=== PATIENT | female | born 1980 | race Hispanic/Latino ===

== ENCOUNTER → 2021-10-23 | Outpatient (CLI) | payer OTHER | END | disposition home or self-care (01) | LOC: SHCH 13:08 | PROVIDERS: ATTEND Student in an Organized Health Care Education/Training Program | DX: R55 Syncope and collapse (principal); R00.2 Palpitations; E78.5 Hyperlipidemia, unspecified | CPT/HCPCS: 93306 ==

== ENCOUNTER 2022-04-27 12:40 | Emergency (ER) | payer OTHER ==
[~2022-04-27] VITALS: Ht 157.5 cm; Wt 63.5 kg
[~2022-04-27 12:40] MED LIST: ACYC-138 PO; IBUP-2070 PO; TRAM100T40 PO
[2022-04-27 12:45] VITALS: BP 130/80
[2022-04-27] MEDS ORDERED: LORAZEPAM 1 MG TABLET PO ONE (13:00)
[2022-04-27] MEDS ORDERED: PREDNISONE 20 MG TABLET PO ONE (13:00)
[2022-04-27] MEDS ORDERED: KETOROLAC 30MG VIAL (30MG/ML) IM ONE (13:00)
[2022-04-27] MEDS ORDERED: NAPR500T6 PO (13:08)
[2022-04-27] MEDS ORDERED: CYCL10TA16 PO (13:08)
[2022-04-27] MEDS ORDERED: PRED20TA3 PO (13:08)
== END 2022-04-27 13:57 | disposition home or self-care (01) ==
LOC: EDH 12:40
DX: M54.12 Radiculopathy, cervical region (principal); R11.0 Nausea; Z88.6 Allergy status to analgesic agent; Z79.899 Other long term (current) drug therapy
CPT/HCPCS: 99283; 96372; J1885

== ENCOUNTER 2023-01-03 11:11 | Emergency (ER) | payer OTHER ==
[~2023-01-03] VITALS: Ht 157.5 cm; Wt 68.0 kg
[~2023-01-03 11:11] MED LIST changes: +CYCL10TA16 PO; +NAPR500T6 PO; +PRED20TA3 PO
[2023-01-03 11:26] VITALS: BP 122/71
[2023-01-03 11:58] LABS: BASOPHILS % (AUTO) 0.6 % (0.0-5.0); EOSINOPHILS % (AUTO) 3.1 % (0.0-8.0); HEMATOCRIT 35.2 % (36-48); LYMPHOCYTES % (AUTO) 31.1 % (21.0-51.0); MEAN CORPUSCULAR HEMOGLOBIN 31.6 pg (27.0-33.0); MEAN CORPUSCULAR HGB CONC 34.7 g/dL (32.0-36.0); MEAN CORPUSCULAR VOLUME 91.2 fL (79-99); MONOCYTES % (AUTO) 6.9 % (3.0-13.0); PLATELET COUNT (AUTO) 316 K/uL (130-400); RED BLOOD CELL COUNT(AUTO) 3.86 MIL/uL (4.00-5.50); RED CELL DISTRIBUTION WIDTH 12.6 % (11.0-15.5); WHITE BLOOD COUNT (AUTO) 6.6 K/uL (4.8-10.8)
[2023-01-03 12:05] LABS: APPEARANCE,URINE CLEAR (CLEAR); BILIRUBIN,URINE NEGATIVE (NEGATIVE); COLOR,URINE LIGHT-YELLOW (YELLOW); GLUCOSE, URINE (UA) NEGATIVE (NEGATIVE); HCG,QUALITATIVE URINE NEGATIVE (NEGATIVE); KETONES,URINE NEGATIVE (NEGATIVE); LEUKOCYTE ESTERASE ,URINE NEGATIVE Leu/uL (NEGATIVE); NITRATE,URINE NEGATIVE (NEGATIVE); PH,URINE 5.5 (5.0-8.0); PROTEIN,URINE NEGATIVE (NEGATIVE); UROBILINOGEN,URINE 0.2 mg/dL (0.2-1.0)
[2023-01-03 12:06] LABS: CREATININE 0.8 mg/dL (0.5-1.5); POTASSIUM 3.6 mmol/L (3.5-5.1)
[2023-01-03 12:10] LABS: RBC,URINE 0-1 /HPF (0-1); SQUAMOUS EPITHELIAL CELL,UR RARE /HPF (0-2)
[2023-01-03 12:11] LABS: ALBUMIN 3.8 g/dL (3.5-5.0); TOTAL PROTEIN, SERUM 7.2 g/dL (6.0-8.3)
[2023-01-03 12:14] LABS: AMPHET/METH SCREEN,URINE NEGATIVE (NEGATIVE); BARBITURATE SCREEN, URINE NEGATIVE (NEGATIVE); BENZODIAZEPINES SCREEN,URINE NEGATIVE (NEGATIVE); CANNABINOID SCREEN,URINE NEGATIVE (NEGATIVE); COCAINE SCREEN,URINE NEGATIVE (NEGATIVE); OPIATE SCREEN,URINE NEGATIVE (NEGATIVE); PHENCYCLIDINE SCREEN,URINE NEGATIVE (NEGATIVE)
[2023-01-03] MEDS ORDERED: DICL20GE TP (14:59)
== END 2023-01-03 15:06 | disposition home or self-care (01) ==
LOC: EDH 11:11
DX: G44.209 Tension-type headache, unspecified, not intractable (principal); F41.9 Anxiety disorder, unspecified; Z79.52 Long term (current) use of systemic steroids; Z79.1 Long term (current) use of non-steroidal anti-inflammatories (NSAID)
CPT/HCPCS: 36415; 70450; 71045; 80053; 80305; 81001; 81025; 85025; 93005

== ENCOUNTER 2023-08-23 10:35 | Emergency (ER) | payer OTHER ==
[~2023-08-23] VITALS: Ht 157.5 cm; Wt 62.1 kg
[~2023-08-23 10:35] MED LIST changes: +DICL20GE TP
[2023-08-23 11:13] LABS: HEMATOCRIT 37.3 % (36-48); MEAN CORPUSCULAR HEMOGLOBIN 31.6 pg (27.0-33.0); MEAN CORPUSCULAR VOLUME 92.8 fL (79-99); RED BLOOD CELL COUNT(AUTO) 4.02 MIL/uL (4.00-5.50); RED CELL DISTRIBUTION WIDTH 12.3 % (11.0-15.5); WHITE BLOOD COUNT (AUTO) 6.7 K/uL (4.8-10.8)
[2023-08-23 11:24] LABS: CREATININE 0.7 mg/dL (0.5-1.5); POTASSIUM 3.5 mmol/L (3.5-5.1)
[2023-08-23 11:29] LABS: ALBUMIN 3.9 g/dL (3.5-5.0); BILIRUBIN,TOTAL 0.3 mg/dL (0.2-1.0); TOTAL PROTEIN, SERUM 7.7 g/dL (6.0-8.3)
[2023-08-23 12:12] VITALS: BP 104/66; PULSE 78; RESP 16; O2SAT 98
[2023-08-23] MEDS ORDERED: KETOROLAC 15MG/ML VIAL (15MG/ML) IV ONE (12:30)
[2023-08-23] MEDS ORDERED: SOLU-MEDROL 125MG VIAL IVP ONE (12:30)
[2023-08-23] MEDS ORDERED: METH4TAB3 PO (13:29)
== END 2023-08-23 13:34 | disposition home or self-care (01) ==
LOC: EDH 10:35
DX: G44.209 Tension-type headache, unspecified, not intractable (principal); M79.18 Myalgia, other site
CPT/HCPCS: 99285; 96374; 71045; 96375; 84484; 80053; 85027; 36415; 93005; J2930; J1885

== ENCOUNTER 2023-09-26 03:49 | Emergency (ER) | payer OTHER ==
[~2023-09-26] VITALS: Ht 157.5 cm; Wt 63.5 kg
[~2023-09-26 03:49] MED LIST changes: +METH4TAB3 PO
[2023-09-26 03:50] VITALS: PULSE 92
[2023-09-26 04:57] LABS: SARS-CoV-2, RNA, NAAT POSITIVE SARS CoV-2 (NEGATIVE)
[2023-09-26 05:02] LABS: INFLUENZA TYPE A Negative For Type A (NEGATIVE); INFLUENZA TYPE B Negative For Type B (NEGATIVE)
[2023-09-26] MEDS ORDERED: IBUP-1493 PO (05:55)
[2023-09-26] MEDS ORDERED: ONDA-104 PO (05:55)
[2023-09-26] MEDS ORDERED: AMOX500C2 PO (05:56)
[2023-09-26] MEDS ORDERED: PRED20TA3 PO (05:56)
[2023-09-26] MEDS ORDERED: ONDANSETRON 4MG INJ IVP ONE (06:00)
[2023-09-26] MEDS ORDERED: CEFTRIAXONE 1G VIAL IVPB ONE (06:00)
[2023-09-26] MEDS ORDERED: 0.9%NACL 1000ML 2,000 ML IV ONE (06:00)
[2023-09-26] MEDS ORDERED: SOLU-MEDROL 40MG VIAL IVP ONE (06:00)
[2023-09-26 06:54] VITALS: BP 132/74; RESP 20; O2SAT 99
== END 2023-09-26 06:55 | disposition home or self-care (01) ==
LOC: EDH 03:49
DX: U07.1 COVID-19 (principal); H66.92 Otitis media, unspecified, left ear; E86.0 Dehydration; Z79.899 Other long term (current) drug therapy; Z98.890 Other specified postprocedural states; Z88.8 Allergy status to other drugs, medicaments and biological substances
CPT/HCPCS: 99284; 96365; 71045; 96375; 87635; 87880; 87804 ×2; C9803; J0696; J2920

== ENCOUNTER 2024-05-16 10:08 | Emergency (ER) | payer BC, OTHER ==
[~2024-05-16] VITALS: Ht 157.5 cm; Wt 63.5 kg
[~2024-05-16 10:08] MED LIST changes: -ACYC-138 PO; +AMOX500C2 PO; -CYCL10TA16 PO; -DICL20GE TP; +IBUP-1493 PO; -IBUP-2070 PO; -METH4TAB3 PO; -NAPR500T6 PO; +ONDA-104 PO; -TRAM100T40 PO
[2024-05-16 10:41] LABS: MEAN CORPUSCULAR HEMOGLOBIN 30.2 pg (27.0-33.0); MEAN CORPUSCULAR HGB CONC 32.5 g/dL (32.0-36.0); MEAN CORPUSCULAR VOLUME 92.8 fL (79-99); PLATELET COUNT (AUTO) 345 K/uL (130-400); RED BLOOD CELL COUNT(AUTO) 3.88 MIL/uL (4.00-5.50); WHITE BLOOD COUNT (AUTO) 6.7 K/uL (4.8-10.8)
[2024-05-16 10:46] LABS: APPEARANCE,URINE CLEAR (CLEAR); BILIRUBIN,URINE NEGATIVE (NEGATIVE); COLOR,URINE YELLOW (YELLOW); GLUCOSE, URINE (UA) NEGATIVE (NEGATIVE); KETONES,URINE NEGATIVE (NEGATIVE); LEUKOCYTE ESTERASE ,URINE 25 Leu/uL (NEGATIVE); NITRATE,URINE NEGATIVE (NEGATIVE); OCCULT BLOOD,URINE SMALL (NEGATIVE); PROTEIN,URINE NEGATIVE (NEGATIVE); UROBILINOGEN,URINE 0.2 mg/dL (0.2-1.0)
[2024-05-16 10:48] LABS: ADD UA MICROSCOPIC YES
[2024-05-16 10:55] LABS: CREATININE 0.8 mg/dL (0.5-1.0); POTASSIUM 4.2 mmol/L (3.5-5.1)
[2024-05-16] MEDS: IBUPROFEN 600 MG TABLET PO ONE (10:56)
[2024-05-16 10:58] LABS: EOSINOPHILS % (MANUAL) 7 % (1-6); LYMPHOCYTES % (MANUAL) 39 % (22-44); MAN.DIFF COMMENT-IMPRESSION MANUAL DIFFERENTIAL; MONOCYTES % (MANUAL) 14 % (2-9); SEGMENTED NEUTROPHILS % 40 % (40-70); TOTAL CELLS COUNTED 100
[2024-05-16 10:59] LABS: PLATELET MORPHOLOGY COMMENT ADEQUATE
[2024-05-16 11:00] LABS: MUCUS,URINE RARE LPF (None Seen); SQUAMOUS EPITHELIAL CELL,UR FEW /HPF (0-2); WBC,URINE 0-1 /HPF (0-1)
[2024-05-16] MEDS: 0.9%NACL 1000ML 1,000 ML IV ONE (12:24)
[2024-05-16 13:15] VITALS: BP 116/67; PULSE 63; RESP 17; O2SAT 100
== END 2024-05-16 13:41 | disposition home or self-care (01) ==
LOC: EDH 10:08
DX: R55 Syncope and collapse (principal); E86.0 Dehydration; Z79.899 Other long term (current) drug therapy; Z88.8 Allergy status to other drugs, medicaments and biological substances; Z98.890 Other specified postprocedural states
CPT/HCPCS: 99284; 70450; 84484; 80048; 84703; 85025; 81001; 36415; 93005; J7030